=== PATIENT | male | born 1935 | race Caucasian/White ===

== ENCOUNTER 2016-09-29 13:55 | Emergency (ER) | payer MEDICARE, OTHER ==
[~2016-09-29] VITALS: Ht 172.7 cm; Wt 72.7 kg
[~2016-09-29 13:55] MED LIST: ECOT81TA2 PO; TAMS0.4C67 PO
[2016-09-29 14:41] VITALS: BP 99/62; PULSE 73; RESP 16; TEMP 96.7; O2SAT 96
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
[2016-09-29 16:55] LABS: AMPHETAMINE, URINE NEG (NEG); BARBITURATES, URINE NEG (NEG); COCAINE, URINE NEG (NEG)
[2016-09-29 16:56] LABS: BACTERIA, URINE RARE /hpf; BLOOD, URINE SMALL (NEG); COMMENT (UR) CULT NOT INDICATED; CULTURE IF INDICATED CULT NOT INDICATED; GLUCOSE,URINE NEG (NEG); KETONE, URINE NEG (NEG); NITRITE,URINE NEG (NEG); URINE COLOR YELLOW (YELLW/STRAW)
[2016-09-29 16:59] LABS: AUTOMATED NEUTROPHIL # 7.4 TH/MM3 (1.8-7.7); BASOPHIL # 0.1 TH/MM3 (0-0.2); BASOPHIL % 0.7 % (0.0-2.0); EOSINOPHIL # 0.2 TH/MM3 (0-0.4); EOSINOPHIL % 1.8 % (0.0-4.0); HEMATOCRIT 37.8 % (39.0-51.0); HEMO FLAGS DIFF FINAL; LYMPH % 11.2 % (9.0-44.0); LYMPHOCYTE # 1.1 TH/MM3 (1.0-4.8); MEAN CELL VOLUME 87.1 FL (80.0-100.0); MEAN CORPUSCULAR HEMOGLOBIN 28.7 PG (27.0-34.0); MONO % 12.2 % (0.0-8.0); NEUT % 74.1 % (16.0-70.0); PLATELET COUNT 315 TH/MM3 (150-450); RED BLOOD COUNT 4.34 MIL/MM3 (4.50-5.90); RED CELL DISTRIBUTION WIDTH 14.3 % (11.6-17.2)
[2016-09-29 17:06] LABS: ANION GAP 8 MEQ/L (5-15); BICARBONATE 28.2 MEQ/L (21.0-32.0); BLOOD UREA NITROGEN 23 MG/DL (7-18); CHLORIDE 105 MEQ/L (98-107); GLOMERULAR FILTRATION RATE 96 ML/MIN (>89); POTASSIUM 3.9 MEQ/L (3.5-5.1); SODIUM (NA) 141 MEQ/L (136-145)
[2016-09-29 17:56] VITALS: BP 124/59; PULSE 58; RESP 16; O2SAT 96
[2016-09-29 20:14] VITALS: BP 186/78; PULSE 70; RESP 16; TEMP 98.3; O2SAT 100
[2016-09-29] MEDS ORDERED: LEVO25TA4 PO (21:19)
[2016-09-29] MEDS ORDERED: MEMA1TAB PO (21:19)
[2016-09-29] MEDS ORDERED: TYLE325T PO (21:19)
[2016-09-29] MEDS ORDERED: TAMS0.4C4 PO (21:19)
[2016-09-29] MEDS ORDERED: MILKSUS PO (21:19)
[2016-09-29] MEDS ORDERED: CIPR-9 PO (21:19)
[2016-09-29] MEDS ORDERED: SERO25TA PO ×2 (21:19)
[2016-09-29] MEDS ORDERED: ARIC10TA PO (21:19)
[2016-09-29] MEDS ORDERED: REST15CA PO (21:19)
[2016-09-29] MEDS ORDERED: TEMAZEPAM 15 MG CAP PO ONE (22:30)
[2016-09-30 07:20] VITALS: BP 144/87; PULSE 65; RESP 15; O2SAT 99
== END 2016-09-30 10:42 | disposition home or self-care (01) ==
LOC: NEPB 13:55 → NEPA 09-30 10:42
DX: F03.91 Unspecified dementia, unspecified severity, with behavioral disturbance (principal); R45.1 Restlessness and agitation; L89.152 Pressure ulcer of sacral region, stage 2; Z87.440 Personal history of urinary (tract) infections
CPT/HCPCS: 80048; 80307; 80320; 81001; 85025; 99284